=== PATIENT | male | born 1995 | race African-American/Black ===

== ENCOUNTER 2019-05-19 08:55 | Emergency (ER) | payer SELFPAY ==
[2019-05-19] MEDS ORDERED: Lidocaine 1% (PF) 30 ML VIAL ONE (09:34)
--- NOTE | 2019-05-19 09:44 | RAD ---
EXAM: Left hand: 3 views INDICATIONS: Injury COMPARISON: None. FINDINGS: Carpals, metacarpals, and phalanges appear intact. No osseous abnormality identified. There is soft tissue gas density seen at the thenar eminence and palmar aspect of the hand. Recommend clinical correlation. IMPRESSION: No acute osseous abnormality. Soft tissue swelling and soft tissue gas density noted with in the soft tissues of the palm.
[2019-05-19] MEDS ORDERED: Adacel (T-DAP) 0.5 ML SYRINGE ONE (09:58)
== END 2019-05-19 10:50 | disposition home or self-care (01) ==
LOC: ERS 08:55
DX: S61.412A Laceration without foreign body of left hand, initial encounter (principal); F17.210 Nicotine dependence, cigarettes, uncomplicated; Z77.22 Contact with and (suspected) exposure to environmental tobacco smoke (acute) (chronic); W26.0XXA Contact with knife, initial encounter
CPT/HCPCS: 12001; 90471; 90715; 99406; J2001

== ENCOUNTER 2019-05-29 19:00 | Emergency (ER) | payer SELFPAY | END 2019-05-29 19:35 | disposition home or self-care (01) | LOC: ERS 19:00 | DX: S61.412D Laceration without foreign body of left hand, subsequent encounter (principal); L40.9 Psoriasis, unspecified ==

== ENCOUNTER 2024-01-26 13:53 | Emergency (ER) | payer SELFPAY ==
[2024-01-26 15:06] LABS: Influenza A by NAA Not Detected (NotDetected); Influenza B by NAA Not Detected (NotDetected); SARS-CoV-2 NAA Rapid Test DETECTED (NotDetected)
== END 2024-01-26 16:08 | disposition home or self-care (01) ==
LOC: ERS 13:53
DX: U07.1 COVID-19 (principal)
CPT/HCPCS: 71045